=== PATIENT | female | born 1940 | race Caucasian/White ===

== ENCOUNTER 2020-01-06 11:24 | Emergency (ER) | payer MEDICARE, SELFPAY ==
--- NOTE | ~2020-01-06 | XR_ITS ---
EXAMINATION: XR foot LT min 3V DATE: 01/06/2020 11:59 INDICATION: Left foot pain. Injury. TECHNIQUE: 4 views of left foot were obtained. COMPARISON: None. FINDINGS: Bone alignment is normal. No fracture. There is mild osteoarthritis of first metatarsophala ngeal joint and some of the interphalangeal joints. There are enthesophytes at the posterior and plan tar aspects of calcaneal tuberosity. IMPRESSION: 1. Mild polyarticular osteoarthritis. Reviewed, dictated and finalized at location A.
[2020-01-06 11:47] VITALS: BP 125/94; PULSE 72; RESP 16; TEMP 36.7; O2SAT 97
--- NOTE | 2020-01-06 11:52 | ED.LOWEXIN ---
HPI - Extremity Injury (Lower) General Chief Complaint: Extremity Injury, Lower Stated Complaint: left foot injury Time Seen by Provider: 01/06/20 12:05 Source: patient and RN notes reviewed Mode of arrival: ambulatory Limitations: no limitations History of Present Illness HPI Narrative: 79-year-old female presents with concern for bruise to her left foot. Patient reports she has a vision issue that causes her to lack depth perception and peripheral vision, reports she caught her foot under a rocking chair 2 times. Reports dorsal distal foot pain, denies digit pain. Patient is on Plavix. MD complaint: foot injury Related Data Home Medications Medication Instructions Recorded Confirmed Qunol 01/06/20 alprazolam [Xanax] 0.25 mg PO TID 01/06/20 01/06/20 cholecalciferol (vitamin D3) 10 mcg PO DAILY 01/06/20 01/06/20 [Vitamin D3] diltiazem HCl 1 mg PO BID 01/06/20 01/06/20 docusate sodium [Colace] 100 mg PO DAILY 01/06/20 01/06/20 metoprolol succinate [Toprol XL] 25 mg PO DAILY 01/06/20 01/06/20 peg 400-propylene glycol (PF) 1 drp OPHTHALMIC (EYE) QID 01/06/20 01/06/20 [Systane (PF)] pravastatin [Pravachol] 40 mg PO HS 01/06/20 01/06/20 rivaroxaban [Xarelto] 20 mg PO DAILY 01/06/20 01/06/20 torsemide 20 mg PO DAILY 01/06/20 01/06/20 trazodone 100 mg PO HS 01/06/20 01/06/20 Allergies Allergy/AdvReac Type Severity Reaction Status Date / Time Penicillins Allergy Unknown Verified 01/06/20 11:53 Review of Systems Review of Systems: Narrative: CONSTITUTIONAL: Denies malaise, chills, sweats, or fever. SKIN: Reports left dorsal swelling and bruising MUSCULOSKELETAL: Reports left foot pain NEUROLOGIC: Denies numbness, weakness All systems reviewed & are unremarkable except as noted in HPI and below PMFSH Social History Social History Gender identity (if verbalized by the patient): Female Comments At time of signature, agree with nursing past medical, surgical, social and family history. There is no relevant family history pertinent to the presenting complaint Exam Narrative: Exam Narrative: GENERAL: Well-appearing, well-nourished, and in no acute distress. HEAD: Normocephalic, atraumatic. EYES: PERRLA, conjunctivae clear NECK: Supple. CHEST: Speaks in full sentences. No respiratory distress. HEART: Regular rate and rhythm. Normal and equal peripheral pulses. EXTREMITIES: Left foot and digits has normal strength and sensation, normal range of motion. Small amount of dorsal edema. Moderate ecchymosis. 5/5 strength with ankle and digit flexion and extension. Normal sensation with sensitivity to light touch and pain. No open wounds, no skin tenting, no devitalized tissue or atrophy, no trophic changes, no obvious deformity, alignment normal, no point tenderness, nearby joints and structures intact. Distal pulses palpable and equal bilaterally, skin warm, dry, pink. Capillary refill less than 3 seconds. SKIN: Warm, dry, no rash. NEURO: Alert and oriented x3. PSYCH: Normal mood and affect Course Course Emergency Course: Patient is aware of diagnosis, understands and agrees to treatment plan. Anticipatory guidance given. Patient agrees to follow-up as directed and is aware of reasons to seek care at the emergency department. Portions of this record may have been created with voice recognition software Vital Signs Vital signs: Vital Signs Temperature 98.0 F 01/06/20 11:47 Pulse Rate 72 01/06/20 11:47 Respiratory Rate 16 01/06/20 11:47 Blood Pressure 125/94 H 01/06/20 11:47 Pulse Oximetry 97 01/06/20 11:47 Temperature 98.0 F 01/06/20 11:47 Pulse Rate 72 01/06/20 11:47 Respiratory Rate 16 01/06/20 11:47 Blood Pressure 125/94 H 01/06/20 11:47 Pulse Oximetry 97 01/06/20 11:47 Reviewed. MDM - Extremity Injury (Lower) MDM Narrative Medical decision making narrative: Patients injury and pain is consistent with musculoskeletal etiology. No signs of neurological or vascular compr
== END 2020-01-06 12:20 | disposition home or self-care (01) ==
PROVIDERS: Emergency Provider Nurse Practitioner
DX: S90.32XA Contusion of left foot, initial encounter (principal); W22.03XA Walked into furniture, initial encounter; Z95.5 Presence of coronary angioplasty implant and graft
CPT/HCPCS: 73630; 99203; G0463